=== PATIENT | male | born 1995 | race African-American/Black ===

== ENCOUNTER 2019-07-04 11:32 | Emergency (ER) | payer MEDICAID ==
[~2019-07-04] VITALS: Ht 177.8 cm; Wt 75.0 kg
[2019-07-04] MEDS: KETOROLAC 60MG/2ML VIAL IM ONE (16:12)
[2019-07-04 18:18] VITALS: BP 128/64
== END 2019-07-04 18:19 | disposition home or self-care (01) ==
LOC: ER 11:32
DX: M54.5 Low back pain (principal); M25.511 Pain in right shoulder; Z88.8 Allergy status to other drugs, medicaments and biological substances; V43.52XA Car driver injured in collision with other type car in traffic accident, initial encounter; Y93.89 Activity, other specified; Y92.488 Other paved roadways as the place of occurrence of the external cause
CPT/HCPCS: 71250; 72100; 72125; 73010; 96372; 99284; J1885